=== PATIENT | female | born 1985 | race Caucasian/White ===

== ENCOUNTER 2019-03-05 13:30 | Outpatient (CLI) | payer OTHER, SELFPAY ==
--- NOTE | 2019-03-05 13:43 | MR_ITS ---
WS: [id number] MRI HEAD WITH CONTRAST TECHNIQUE: Sagittal T1, T2 axial, T2 axial FLAIR, axial susceptibility weighted imaging, axial diffus ion weighted images, and coronal T2 images were obtained. Pre and post-T1 axial and post T1 coronal i mages. ADC and FSPGR images. CLINICAL INFORMATION: DIZZINESS COMPARISON: None. FINDINGS: No evidence of restricted diffusion to suggest acute ischemia. Ventricular system and basal cisterns are patent. Normal arenas-white differentiation. No suspicious intracranial signal abnormalities. Patrizia l posterior fossa. Normal vascular flow voids at the skull base. No extra-axial fluid collections. No evidence of mass or mass effect. Paranasal sinuses and mastoid air cells are well aerated. Normal midline structures. Normal posterior fossa. Upper cervical spine is normal. Normal optic chiasm and pituitary infundibulum. Normal cavern ous sinuses. No hemosiderin on susceptibly weighted images. Prominent perivascular spaces left basal ganglia. No abnormal intracranial enhancement. MR/MR head wo/w con [id number] IMPRESSION: 1. No evidence of restricted diffusion to suggest acute ischemia. 2. No suspicious intracranial signal abnormalities. 3. Paranasal sinuses and mastoid air cells are well aerated. 4. Normal optic chiasm and pituitary infundibulum. 5. No abnormal intracranial enhancement.
== END 2019-03-05 13:31 | disposition home or self-care (01) ==
LOC: RADWPI 13:36
PROVIDERS: Family Provider Family Medicine; PCP Family Medicine; Visit Provider Family Medicine
DX: R42 Dizziness and giddiness (principal)
CPT/HCPCS: 70553; A9579

== ENCOUNTER → 2019-09-24 08:25 | Outpatient (BNVA) | payer OTHER, SELFPAY | PROVIDERS: Family Provider Family Medicine; PCP Family Medicine; Referring Provider Family Medicine; Visit Provider Specialist | DX: R42 Dizziness and giddiness (principal); G43.109 Migraine with aura, not intractable, without status migrainosus | CPT/HCPCS: 99204 ==

== ENCOUNTER → 2019-11-13 07:44 | Outpatient (BNVA) | payer OTHER, SELFPAY | PROVIDERS: Family Provider Family Medicine; PCP Family Medicine; Visit Provider Specialist | DX: R42 Dizziness and giddiness (principal); G43.909 Migraine, unspecified, not intractable, without status migrainosus | CPT/HCPCS: 99213 ==

== ENCOUNTER → 2020-01-30 12:56 | Outpatient (BNVA) | payer OTHER, SELFPAY | PROVIDERS: Family Provider Family Medicine; PCP Family Medicine; Visit Provider Nurse Practitioner Family | DX: Z20.828 Contact with and (suspected) exposure to other viral communicable diseases (principal) | CPT/HCPCS: 87635 ==

== ENCOUNTER → 2020-03-18 07:52 | Outpatient (BNVA) | payer OTHER, SELFPAY | PROVIDERS: Family Provider Family Medicine; PCP Family Medicine; Visit Provider Specialist | DX: G43.109 Migraine with aura, not intractable, without status migrainosus (principal); G43.809 Other migraine, not intractable, without status migrainosus | CPT/HCPCS: 99213 ==

== ENCOUNTER → 2020-09-16 07:54 | Outpatient (BNVA) | payer OTHER, SELFPAY | PROVIDERS: Family Provider Family Medicine; PCP Family Medicine; Visit Provider Specialist | DX: G43.809 Other migraine, not intractable, without status migrainosus (principal); G43.109 Migraine with aura, not intractable, without status migrainosus; Z87.891 Personal history of nicotine dependence | CPT/HCPCS: 99212; 99214 ==

== ENCOUNTER 2020-12-30 15:08 | Outpatient (CLI) | payer OTHER, SELFPAY ==
--- NOTE | 2020-12-30 15:11 | MM_ITS ---
WS: [id number] DIAGNOSTIC BILATERAL DIGITAL MAMMOGRAM WITH CAD LEFT breast ultrasound, limited. HISTORY: Palpable area LEFT breast and pain. COMPARISON: None available. TECHNIQUE: Bilateral craniocaudad, mediolateral oblique, and mediolateral views are submitted. Spot c ompression LEFT MLO. Magnification views RIGHT breast. Computer aided detection utilized. Breast composition: The breasts are extremely dense, which lowers the sensitivity of mammography. Num erous amorphous calcifications are noted in the upper-outer quadrant of the RIGHT breast. There are a few calcifications also in the LEFT upper outer quadrant. There is one grouping of calcifications in the RIGHT upper quadrant that appears more linear in distribution. This calcification group is best seen on the RIGHT MLO projection at a middle depth. No soft tissue abnormality or distortion. No mass is identified. LEFT breast ultrasound, limited. Ultrasound is directed along the medial aspect of the LEFT breast and around the areolar and at 1-2 o 'clock and the axilla. These are the areas of concern. There are no discrete masses or suspicious fin dings in any of these locations. Normal benign-appearing lymph nodes. MM/[place] [id number] IMPRESSION: BI-RADS: 4-Suspicious Finding-Biopsy Should Be Considered FOLLOW UP: Biopsy Recommended 1. Stereotactic biopsy recommended of RIGHT breast calcifications in the upper outer quadrant at a middle depth. Favor these are probably benign calcificatio ns but due to their linear distribution biopsy should be obtained. 2. No abnormality in the LEFT breast in the area of pain and palpable abnormal ity. Notified Freda Garcia NP at 01/04/2021 9:12 AM. Riana Garcia not available at this time. Message left with Sue in Oncology.
--- NOTE | 2020-12-30 15:15 | US_ITS ---
WS: [id number] DIAGNOSTIC BILATERAL DIGITAL MAMMOGRAM WITH CAD LEFT breast ultrasound, limited. HISTORY: Palpable area LEFT breast and pain. COMPARISON: None available. TECHNIQUE: Bilateral craniocaudad, mediolateral oblique, and mediolateral views are submitted. Spot c ompression LEFT MLO. Magnification views RIGHT breast. Computer aided detection utilized. Breast composition: The breasts are extremely dense, which lowers the sensitivity of mammography. Num erous amorphous calcifications are noted in the upper-outer quadrant of the RIGHT breast. There are a few calcifications also in the LEFT upper outer quadrant. There is one grouping of calcifications in the RIGHT upper quadrant that appears more linear in distribution. This calcification group is best seen on the RIGHT MLO projection at a middle depth. No soft tissue abnormality or distortion. No mass is identified. LEFT breast ultrasound, limited. Ultrasound is directed along the medial aspect of the LEFT breast and around the areolar and at 1-2 o 'clock and the axilla. These are the areas of concern. There are no discrete masses or suspicious fin dings in any of these locations. Normal benign-appearing lymph nodes. US/US breast LT limited* [id number] IMPRESSION: BI-RADS: 4-Suspicious Finding-Biopsy Should Be Considered FOLLOW UP: Biopsy Recommended 1. Stereotactic biopsy recommended of RIGHT breast calcifications in the upper outer quadrant at a middle depth. Favor these are probably benign calcificatio ns but due to their linear distribution biopsy should be obtained. 2. No abnormality in the LEFT breast in the area of pain and palpable abnormal ity. Notified Freda Garcia NP at 01/04/2021 9:12 AM. Riana Garcia not available at this time. Message left with Sue in Oncology.
== END 2020-12-30 15:09 | disposition home or self-care (01) ==
LOC: RADSHAW 15:10
PROVIDERS: Visit Provider Nurse Practitioner
DX: N63.20 Unspecified lump in the left breast, unspecified quadrant (principal); N64.4 Mastodynia; R92.1 Mammographic calcification found on diagnostic imaging of breast
CPT/HCPCS: 76642; 77066

== ENCOUNTER 2021-01-19 12:34 | Outpatient (CLI) | payer OTHER, SELFPAY ==
--- NOTE | 2021-01-19 12:40 | MM_ITS ---
WS: [id number] STEREOTACTIC RIGHT BREAST BIOPSY WITH VACUUM ASSISTANCE. COMPARISON: December 30, 2020 History: Heterogeneous right breast calcifications. Biopsy recommended for suspicious calcifications. Procedure, risks, and complications were discussed with the patient who agreed to proceed. Prior imag ing was reviewed. Cluster of calcifications within the right breast are localized. Stereotactic imaging was performed. Patient was prepped and draped in usual sterile fashion. After 1% lidocaine, calcifications were targ eted stereotactically in the right breast. Small incision was made. Needle advanced into the cluster of calcifications right breast with imaging demonstrating appropriate position relative to the calcif ications. Multiple vacuum-assisted core biopsies were obtained. Postprocedure imaging demonstrates ca lcifications within the biopsy specimen. The biopsy cavity was lavaged. Titanium clip was placed at the biopsy site. Postprocedure imaging dem onstrates clip in good position. No immediate complications. MM/MM biopsy RT vac assist [id number] IMPRESSION: 1. Uncomplicated vacuum-assisted stereotactic biopsy of calcifications in the right breast. Pathology: -Benign breast tissue with fibrocystic changes. -Microcalcifications identified. -Duct ectasia with tubular adenosis. -No malignancy identified. BI-RADS: 2 benign FOLLOW UP: Recommend 6 month diagnostic mammographic follow-up postbiopsy
--- NOTE | 2021-01-19 12:40 | MM_ITS ---
WS: [id number] STEREOTACTIC RIGHT BREAST BIOPSY WITH VACUUM ASSISTANCE. COMPARISON: December 30, 2020 History: Heterogeneous right breast calcifications. Biopsy recommended for suspicious calcifications. Procedure, risks, and complications were discussed with the patient who agreed to proceed. Prior imag ing was reviewed. Cluster of calcifications within the right breast are localized. Stereotactic imaging was performed. Patient was prepped and draped in usual sterile fashion. After 1% lidocaine, calcifications were targ eted stereotactically in the right breast. Small incision was made. Needle advanced into the cluster of calcifications right breast with imaging demonstrating appropriate position relative to the calcif ications. Multiple vacuum-assisted core biopsies were obtained. Postprocedure imaging demonstrates ca lcifications within the biopsy specimen. The biopsy cavity was lavaged. Titanium clip was placed at the biopsy site. Postprocedure imaging dem onstrates clip in good position. No immediate complications. MM/[place] [id number] IMPRESSION: 1. Uncomplicated vacuum-assisted stereotactic biopsy of calcifications in the right breast. Pathology: -Benign breast tissue with fibrocystic changes. -Microcalcifications identified. -Duct ectasia with tubular adenosis. -No malignancy identified. BI-RADS: 2 benign FOLLOW UP: Recommend 6 month diagnostic mammographic follow-up postbiopsy
--- NOTE | 2021-01-19 12:40 | MM_ITS ---
WS: [id number] STEREOTACTIC RIGHT BREAST BIOPSY WITH VACUUM ASSISTANCE. COMPARISON: December 30, 2020 History: Heterogeneous right breast calcifications. Biopsy recommended for suspicious calcifications. Procedure, risks, and complications were discussed with the patient who agreed to proceed. Prior imag ing was reviewed. Cluster of calcifications within the right breast are localized. Stereotactic imaging was performed. Patient was prepped and draped in usual sterile fashion. After 1% lidocaine, calcifications were targ eted stereotactically in the right breast. Small incision was made. Needle advanced into the cluster of calcifications right breast with imaging demonstrating appropriate position relative to the calcif ications. Multiple vacuum-assisted core biopsies were obtained. Postprocedure imaging demonstrates ca lcifications within the biopsy specimen. The biopsy cavity was lavaged. Titanium clip was placed at the biopsy site. Postprocedure imaging dem onstrates clip in good position. No immediate complications. MM/MM surgical specimen RT IMPRESSION: 1. Uncomplicated vacuum-assisted stereotactic biopsy of calcifications in the right breast. Pathology: -Benign breast tissue with fibrocystic changes. -Microcalcifications identified. -Duct ectasia with tubular adenosis. -No malignancy identified. BI-RADS: 2 benign FOLLOW UP: Recommend 6 month diagnostic mammographic follow-up postbiopsy
== END 2021-01-19 12:35 | disposition home or self-care (01) ==
LOC: RADSHAW 12:35
PROVIDERS: Visit Provider Nurse Practitioner
DX: R92.1 Mammographic calcification found on diagnostic imaging of breast (principal); N60.41 Mammary duct ectasia of right breast
CPT/HCPCS: 19081; 77065; 88305; J7050

== ENCOUNTER 2021-07-07 08:10 | Outpatient (CLI) | payer OTHER, SELFPAY ==
--- NOTE | 2021-07-07 08:21 | MM_ITS ---
WS: [id number] RIGHT 3D TOMOSYNTHESIS DIGITAL MAMMOGRAPHY WITH CAD CLINICAL INFORMATION: BENIGN NEOPLASM OF RT BREAST HISTORY: Six-month follow-up stereotactic breast biopsy calcifications COMPARISON: January 19, 2021 TECHNIQUE: 3 views of the right breast were obtained. FINDINGS: The right breast is composed of heterogeneous fibroglandular density tissue, which can limit the dete ction of small underlying mass lesions. Biopsy clip noted in the central outer RIGHT breast. Stable p unctate calcifications upper outer RIGHT breast. No suspicious focal mass, asymmetry, calcifications, or architectural distortion. No evidence of jessika gnancy. MM/[place] [id number] IMPRESSION: BI-RADS: 2-Benign FOLLOW UP: 1 Year Follow-up Recommend return to annual diagnostic mammography.
== END 2021-07-07 08:11 | disposition home or self-care (01) ==
PROVIDERS: PCP Family Medicine; Visit Provider Family Medicine
DX: D24.1 Benign neoplasm of right breast (principal)
CPT/HCPCS: 77061

== ENCOUNTER 2022-07-14 07:39 | Outpatient (CLI) | payer OTHER, SELFPAY ==
--- NOTE | 2022-07-14 08:00 | MM_ITS ---
WS: [email or web address] BILATERAL 3D TOMOSYNTHESIS DIGITAL DIAGNOSTIC MAMMOGRAPHY WITH CAD CLINICAL INFORMATION: previous abnormal mammogram COMPARISON: July 07, 2021 TECHNIQUE: Bilateral CC, MLO, and ML views. FINDINGS: The breasts are composed of heterogeneous fibroglandular density, which can limit the detection of sm all underlying mass lesions. Stable punctate calcifications upper outer RIGHT breast. Stable punctate calcifications LEFT breast. Biopsy clip posterior central RIGHT breast. No suspicious focal mass, asymmetry, calcifications, or architectural distortion. No evidence of jessika gnancy. MM/[place] [id number] IMPRESSION: BI-RADS: 2-Benign FOLLOW UP: 1 Year Follow-up Recommend return to annual diagnostic mammography.
== END 2022-07-14 07:40 | disposition home or self-care (01) ==
PROVIDERS: PCP Family Medicine; Visit Provider Family Medicine
DX: D24.1 Benign neoplasm of right breast (principal); R92.8 Other abnormal and inconclusive findings on diagnostic imaging of breast
CPT/HCPCS: 77062; G0279

== ENCOUNTER 2022-09-16 06:22 | Day surgery (SDC) | payer OTHER, SELFPAY ==
[2022-09-14 13:35] VITALS: BMI 23.3
[2022-09-16 06:32] VITALS: BP 106/79; PULSE 61; RESP 16; TEMP 36.4; O2SAT 99
[2022-09-16] MEDS: sodium chloride 0.9% 1,000 ML 30 ML IV (06:45)
--- NOTE | 2022-09-16 06:54 | PM.HP ---
Providers/Chief Complaint Primary Care Provider: Darya Robledo DO Chief Complaint: K59.00, K62.5 History of Present Illness Antonieta Colin is a 36 year old female Medications/Allergies Home Medications Medication Instructions Recorded Confirmed Last Taken Type aspirin 81 mg tablet,delayed 81 mg PO DAILY 07/22/20 09/14/22 09/12/22 History release (Adult Aspirin Regimen) loratadine 10 mg tablet (Claritin) 10 mg PO DAILY 11/23/20 09/14/22 09/14/22 History topiramate 50 mg tablet 50 mg PO BID 09/14/22 09/16/22 09/15/22 History Allergies Allergy/AdvReac Type Severity Reaction Status Date / Time No Known Allergies Allergy Verified 08/16/22 11:44 PFSH Acute PFSH: Medical History No pertinent past medical history Denies diabetes asthma hypertension seizures DVT/PE PCP: Dr. Robledo Vestibular migraine Surgical History S/P hysterectomy Laparoscopic total hysterectomy performed by Dr. Benjamin in 2014 for ARNOLD-1 per patient. She is not short of tubes were taken. She states that her ovaries were not removed. She states that the pathology was within normal limits---operative reports and pathology have been requested. S/P right knee arthroscopy Arthroscopic surgery for Torn meniscus in 1996 Status post surgery Crotherapy--2002--------> done for an abnormal Pap smear Family History Grandfather Diabetes maternal Heart disease maternal Grandmother Ovarian cancer Maternal, age at diagnosis unknown Mother Hypertension Breast cancer Diagnosed in her 60s Father Hypertension Hyperlipidemia Lung cancer Denies family history of Colon cancer DVT (deep venous thrombosis) Pulmonary embolism Uterine cancer Thyroid condition Social History Substance/Drug Use: never Vitals/I&O/Wt Last Vital Signs Temp 97.6 F 09/16/22 06:32 Pulse 61 09/16/22 06:32 Resp 16 09/16/22 06:32 BP 106/79 09/16/22 06:32 Pulse Ox 99 09/16/22 06:32 O2 Del Method Room Air 09/16/22 06:32 Weight last 48 hrs Weight 140 lb A&P Assessment and plan (1) BRBPR (bright red blood per rectum): (2) Constipation: (3) Anal fissure: Plan Colonoscopy Attestations Medical Necessity Statement*: Home Coding Level of Care Code Acute Code for Chg Fwd Diagnoses BRBPR (bright red blood per rectum) K62.5 Constipation K59.00 Anal fissure K60.2
--- NOTE | 2022-09-16 07:24 | ANES.PREANE2 ---
Pre-Anesthetic Assessment Height/Weight: Height 1.65 m Weight 63.503 kg Temp Pulse Resp BP Pulse Ox O2 Del Method 97.6 F 61 16 106/79 99 Room Air 09/16/22 06:32 09/16/22 06:32 09/16/22 06:32 09/16/22 06:32 09/16/22 06:32 09/16/22 06:32 Operation Date: 09/16/22 07:30 Proposed Procedures p Colonoscopy 58904, K59.00, K62.5(Not Applicable) - Prashant Whittington DO Familial anesthetic complications: None Was Beta Bhargav taken within 24 hours: N/A Was Clonidine taken within 24 hours: N/A Last intake: Intake Last Liquid Date 09/15/22 Last Liquid Time 22:00 Last Solid Date 09/14/22 Last Solid Time 18:30 Social No alcohol Exam alert, oriented x 3, clear to auscultation bilaterally and regular rate & rhythm Airway Mallampati: Class I Dentition: full Anesthetic Plan ASA status: 1 Anesthesia: MAC Risk of > 500 ml blood loss (7ml/kg in children): No Medications/Allergies Home Medications Medication Instructions Recorded Confirmed Last Taken Type aspirin 81 mg tablet,delayed 81 mg PO DAILY 07/22/20 09/14/22 09/12/22 History release (Adult Aspirin Regimen) loratadine 10 mg tablet (Claritin) 10 mg PO DAILY 11/23/20 09/14/22 09/14/22 History topiramate 50 mg tablet 50 mg PO BID 09/14/22 09/16/22 09/15/22 History Allergies Allergy/AdvReac Type Severity Reaction Status Date / Time No Known Allergies Allergy Verified 08/16/22 11:44 Current Medications Generic Name Dose Route Start Last Admin Trade Name Freq PRN Reason Stop Dose Admin Sodium Chloride 1,000 mls @ 30 mls/hr 09/16/22 06:30 09/16/22 06:45 Sodium Chloride 0.9% IV 09/17/22 06:29 30 mls/hr .Q24H CICI Administration PFSH Anesthesia Medical History No pertinent past medical history Denies diabetes asthma hypertension seizures DVT/PE PCP: Dr. Robledo Vestibular migraine Surgical History S/P hysterectomy Laparoscopic total hysterectomy performed by Dr. Benjamin in 2015 for ARNOLD-1 per patient. She is not short of tubes were taken. She states that her ovaries were not removed. She states that the pathology was within normal limits---operative reports and pathology have been requested. S/P right knee arthroscopy Arthroscopic surgery for Torn meniscus in 1996 Status post surgery Crotherapy--2002--------> done for an abnormal Pap smear Family History Grandfather Diabetes maternal Heart disease maternal Grandmother Ovarian cancer Maternal, age at diagnosis unknown Mother Hypertension Breast cancer Diagnosed in her 60s Father Hypertension Hyperlipidemia Lung cancer Denies family history of Colon cancer DVT (deep venous thrombosis) Pulmonary embolism Uterine cancer Thyroid condition Social History Substance/Drug Use: never Data Anesthesia Cardiac Studies: No Data to Display
[2022-09-16 07:55] VITALS: BP 105/65; PULSE 73; RESP 16; TEMP 36.4; O2SAT 97
--- NOTE | 2022-09-16 08:00 | ANE.PACU2 ---
Inpatient post-anesthesia follow up: Airway intact: Yes Vital signs: Temperature 97.5 F Pulse Rate 60 Respiratory Rate 16 Blood Pressure 110/74 Pulse Oximetry 98 Oxygen Delivery Me thod Room Air Oxygen Flow Rate Fraction of Inspir ed Oxygen Hydration adequate: Yes Nausea and vomiting: No Pain level: 1 Mental status: Baseline
[2022-09-16 08:05] VITALS: BP 105/73; PULSE 64; RESP 16; O2SAT 97
[2022-09-16 08:20] VITALS: BP 110/74; PULSE 60; RESP 16; O2SAT 98
== END 2022-09-16 08:35 | disposition home or self-care (01) ==
PROVIDERS: PCP Family Medicine; Visit Provider Surgery
PROC: 0DJD8ZZ Inspection of Lower Intestinal Tract, Via Natural or Artificial Opening Endoscopic (ICD-10-PCS; CPT 45378; principal; 2022-09-16 07:30)
DX: K59.00 Constipation, unspecified (principal); K62.5 Hemorrhage of anus and rectum; K60.2 Anal fissure, unspecified; K62.89 Other specified diseases of anus and rectum
CPT/HCPCS: 45380; 88305; J2704; J7030

== ENCOUNTER → 2023-05-18 13:13 | Outpatient (BNVA) | payer OTHER, SELFPAY | PROVIDERS: PCP Family Medicine; Visit Provider Family Medicine | DX: N95.1 Menopausal and female climacteric states; R53.83 Other fatigue; Z13.6 Encounter for screening for cardiovascular disorders | CPT/HCPCS: 80053; 82670; 83001; 83002; 84443; 85025 ==

== ENCOUNTER 2023-07-18 08:35 | Outpatient (CLI) | payer SELFPAY ==
[2023-07-18 09:23] LABS: HF Add Manual Diff No
[2023-07-18 09:26] LABS: Basophils # 0.1 10^3/uL (0.0-0.1); Basophils % 1.3 %; Eosinophils # 0.1 10^3/uL (0.0-0.8); Eosinophils % 1.1 %; Hematocrit 43.9 % (36-47); Lymphocytes # 1.4 10^3/uL (0.8-4.8); Lymphocytes % 31.7 %; Mean Corpuscular Hemoglobin 30.7 pg (27-33); Monocytes # 0.3 10^3/uL (0.2-0.9); Neutrophils # 2.69 10^3/uL (1.8-7.7); Neutrophils % 59.7 %; Nucleated Red Blood Cells % 0 %; Platelet Count 180 10^3/cmm (157-399); Red Blood Count 4.72 10^6/uL (3.85-5.65); Red Cell Distribution Width 11.9 % (12.1-15.1); White Blood Count 4.51 10^3/uL (3.29-11.43)
[2023-07-18 09:44] LABS: Estmated Average Glucose 94; Hemoglobin A1C 4.9 % (4.0-6.0)
[2023-07-18 09:49] LABS: Alanine Aminotransferase 24 U/L (0-33); Albumin Level 4.5 g/dL (3.5-5.2); Alkaline Phosphatase 52 U/L (35-105); Anion Gap 12.7 (5-19); Aspartate Amino Transferase 22 U/L (0-32); Blood Urea Nitrogen 14 mg/dL (6-20); Calcium 9.4 mg/dL (8.5-10.5); Carbon Dioxide 26 mmol/L (22-29); Chloride 104 mmol/L (98-107); Chol HDL Ratio 2.21 mg/dL (0.0-4.40); Cholesterol 181 mg/dL (0-200); Globulin 2.5 g/dL (1.3-4.6); Glomerular Filtration Rate 93.2 mL/min (90-130); Glucose 99 mg/dL (65-115); HDL Cholesterol 82 mg/dL (60-100); LDL Cholesterol Calculated 88 mg/dL (50-129); LDL HDL Ratio 1.07 RATIO (0.00-3.22); Osmolality Calculated 287 mOsm/kg (285-295); Potassium 4.7 mmol/L (3.5-5.1); Sodium 138 mmol/L (136-145); Total Bilirubin 0.5 mg/dL (0.15-1.2); Triglycerides 55 mg/dL (0-150)
== END 2023-07-18 08:36 | disposition home or self-care (01) ==
LOC: LAB 08:39
PROVIDERS: PCP Family Medicine; Visit Provider Dermatology
DX: Z01.89 Encounter for other specified special examinations (principal)
CPT/HCPCS: 36415

== ENCOUNTER 2023-07-20 07:36 | Outpatient (CLI) | payer OTHER, SELFPAY ==
--- NOTE | 2023-07-20 07:39 | MM_ITS ---
WS: [id number] BILATERAL SCREENING DIGITAL TOMOSYNTHESIS MAMMOGRAM WITH CAD HISTORY: SCREENING COMPARISON: 07/14/2022, 07/07/2021, 12/30/2020 Bilateral CC and MLO views with tomosynthesis and synthetic mammography submitted. Computer aided det ection analyzed. Breast composition: The breasts are heterogeneously dense, which may obscure small masses. No suspici ous masses, microcalcifications or architectural distortion. Reidentified are multiple bilateral scat tered calcifications. No obvious progression or pleomorphism. Biopsy clip noted in the RIGHT breast. MM/[place] [id number] IMPRESSION: BI-RADS: 2-Benign FOLLOW UP: 1 Year Follow-up
== END 2023-07-20 07:37 | disposition home or self-care (01) ==
LOC: RAD 07:36
PROVIDERS: PCP Family Medicine; Visit Provider Family Medicine
DX: Z12.31 Encounter for screening mammogram for malignant neoplasm of breast (principal); R92.333 Mammographic heterogeneous density, bilateral breasts; R92.1 Mammographic calcification found on diagnostic imaging of breast
CPT/HCPCS: 77063; 77067

== ENCOUNTER 2024-07-18 08:24 | Outpatient (CLI) | payer SELFPAY ==
[2024-07-18 10:24] LABS: HF Add Manual Diff No
[2024-07-18 10:30] LABS: Basophils # 0.1 10^3/uL (0.0-0.1); Basophils % 1.4 %; Eosinophils % 0.9 %; Hematocrit 42.6 % (36-47); Lymphocytes # 1.4 10^3/uL (0.8-4.8); Lymphocytes % 32.9 %; Mean Corpuscular HGB Conc 32.6 g/dL (30-55); Mean Corpuscular Hemoglobin 28.7 pg (27-33); Mean Platelet Volume 12.3 fL (7.4-10.4); Monocytes # 0.3 10^3/uL (0.2-0.9); Monocytes % 6.4 %; Neutrophils # 2.48 10^3/uL (1.8-7.7); Neutrophils % 58.4 %; Nucleated Red Blood Cells % 0 %; Platelet Count 188 10^3/cmm (157-399); Red Blood Count 4.84 10^6/uL (3.85-5.65); Red Cell Distribution Width 13.7 % (12.1-15.1); White Blood Count 4.25 10^3/uL (3.29-11.43)
[2024-07-18 10:55] LABS: Alanine Aminotransferase 19 U/L (0-33); Albumin Level 4.4 g/dL (3.5-5.2); Alkaline Phosphatase 53 U/L (35-105); Anion Gap 16.9 (5-19); Aspartate Amino Transferase 22 U/L (0-32); Blood Urea Nitrogen 13 mg/dL (6-20); Calcium 8.9 mg/dL (8.5-10.5); Carbon Dioxide 19 mmol/L (22-29); Chloride 107 mmol/L (98-107); Chol HDL Ratio 2.12 mg/dL (0.0-4.40); Cholesterol 159 mg/dL (0-200); Globulin 2.5 g/dL (1.3-4.6); Glomerular Filtration Rate 69.3 mL/min (90-130); Glucose 88 mg/dL (65-115); HDL Cholesterol 75 mg/dL (60-100); LDL Cholesterol Calculated 73 mg/dL (50-129); LDL HDL Ratio 0.97 RATIO (0.00-3.22); Osmolality Calculated 288 mOsm/kg (285-295); Potassium 3.9 mmol/L (3.5-5.1); Sodium 139 mmol/L (136-145); Thyroid Stimulating Hormone 0.86 uIU/mL (0.27-4.20); Total Bilirubin 0.5 mg/dL (0.15-1.2); Total Protein 6.9 g/dL (6.6-8.7); Triglycerides 54 mg/dL (0-150)
[2024-07-18 11:22] LABS: Estmated Average Glucose 97
== END 2024-07-18 08:25 | disposition home or self-care (01) ==
LOC: LAB 08:26
PROVIDERS: Visit Provider Dermatology
DX: Z01.89 Encounter for other specified special examinations (principal)

== ENCOUNTER 2024-07-22 08:09 | Outpatient (CLI) | payer OTHER, SELFPAY ==
--- NOTE | 2024-07-22 08:15 | MM_ITS ---
WS: [id number] BILATERAL SCREENING DIGITAL TOMOSYNTHESIS MAMMOGRAM WITH CAD HISTORY: SCREENING COMPARISON: 07/20/2023, 07/14/2022 Bilateral CC and MLO views with tomosynthesis and synthetic mammography submitted. Computer aided detection analyzed. Breast composition: The breasts are heterogeneously dense, which may obscure small masses. No suspicious masses, microcalcifications or architectural distortion. Numerous calcifications scattered throughout each breast. Biopsy clip in the posterior RIGHT breast. No suspicious grouping of calcifications. MM/MM scr tomosynthesis [id number] IMPRESSION: BI-RADS: 2 - Benign FOLLOW UP: 1 Year Follow-up
== END 2024-07-22 08:10 | disposition home or self-care (01) ==
LOC: RAD 08:10
PROVIDERS: PCP Family Medicine; Visit Provider Family Medicine
DX: Z12.31 Encounter for screening mammogram for malignant neoplasm of breast (principal)
CPT/HCPCS: 77063; 77067